=== PATIENT | female | born 1985 ===

== ENCOUNTER 2021-03-07 09:34 | Emergency (ER) | payer SELFPAY ==
[2021-03-07 10:46] LABS: Bilirubin,Urine NEG (Negative); Blood,Urine SM (Negative); Color,Urine Yellow (Yellow); Mucus,Urine 1+ /HPF; Protein,Urine <15 mg/dL mg/dL (Negative); Urobilinogen,Urine < 2.0 mg/dL (<2.0); WBC,Urine < 1.0 /HPF (0.0-6.0)
[2021-03-07 11:57] LABS: HCG Qualitative,Urine Positive (Negative)
--- NOTE | 2021-03-07 13:22 | Ultrasound Report ---
FIRSTTRIMESTER OBSTETRIC ULTRASOUND ULTRASOUND OB TRANSVAGINAL HISTORY: Pain in early COMPARISON: None. TECHNIQUE: Routine transabdominal and transvaginal OB ultrasound performed. FINDINGS: Uterus: Mildly enlarged measuring 14.0 x 6.6 x 6.7 cm. A few scattered uterine fibroids are identif ied measuring up to 2 cm in the posterior wall and 2.6 cm in the anterior wall. Gestational Sac: Not seen Yolk Sac: Not seen Fetus/Embryo: Not seen Endometrium: The endometrium is thickened and mildly complex measuring up to 2.7 cm in thickness. Ovaries: The right ovary is normal in size and appearance with normal blood flow, measuring 3.4 x 1. 5 x 2.6 cm. The left ovary is normal in size and appearance with normal blood flow, measuring 3.8 x 2.4 x 3.1 cm. Hypoechoic space-occupying mass in the right ovary with peripheral vascularity is most likely the corpus luteum. Additional findings: None. IMPRESSION No normal intrauterine is demonstrated at this time. The endometrium is thickened up to 2.6 cm. This could represent spontaneous with retained products of conception. Please note that an ectopic is not excluded as well. Please correlate with the patient's clinical presentat ion and laboratory values. Close interval follow-up is recommended. Signer Name: Dada Landry Jr, MD Signed: 03/07/2021 1:18 PM Workstation Name: [id number]
--- NOTE | 2021-03-07 13:30 | Emergency Department Report ---
ED HPI - General Chief complaint: Abdominal Pain Stated complaint: Time Seen by Provider: 03/07/21 10:42 Source: patient Mode of arrival: Ambulatory Limitations: No Limitations - History of Present Illness Initial comments: 36-year-old -[place] female patient presents with complaints of intermittent right suprapubic pain x6 days. She reports she had a positive home test 2 days ago. Her last menstrual cycle was 01/23/2021. She is G5, . She denies any vaginal bleeding, dysuria/hematuria/urinary frequency, vaginal discharge/dyspareunia, fever/chills/sweats, or stool changes. She rates the pain as 7/10 in severity and describes it as aching. The pain does not radiate to her back. She does have history of a prior and ectopic . - Related Data Allergies Allergy/AdvReac Type Severity Reaction Status Date / Time No Known Allergies Allergy Unverified 03/07/21 10:10 ED Review of Systems ROS: Stated complaint: Other details as noted in HPI Constitutional: denies: chills, diaphoresis, fever, malaise, weakness Respiratory: denies: shortness of breath Cardiovascular: denies: chest pain Gastrointestinal: abdominal pain. denies: nausea, vomiting, diarrhea, constipation, hematemesis, melena Genitourinary: denies: urgency, dysuria, frequency, hematuria, discharge, abnormal menses, dyspareunia Musculoskeletal: denies: back pain ED Past Medical Hx - Past Medical History Previous Medical History?: Yes Hx Hypertension: Yes - Surgical History Past Surgical History?: Yes Additional Surgical History: ED Physical Exam - General Limitations: No Limitations General appearance: alert, in no apparent distress, obese - Head Head exam: Present: atraumatic, normocephalic - Eye Eye exam: Present: normal appearance - Respiratory Respiratory exam: Present: normal lung sounds bilaterally. Absent: respiratory distress - Cardiovascular Cardiovascular Exam: Present: regular rate, normal rhythm. Absent: systolic murmur, diastolic murmur, rubs, gallop - GI/Abdominal GI/Abdominal exam: Present: soft, normal bowel sounds. Absent: distended, tenderness, guarding, rebound, rigid - Neurological Exam Neurological exam: Present: alert, oriented X3 - Psychiatric Psychiatric exam: Present: normal affect, normal mood - Skin Skin exam: Present: warm, dry, intact, normal color. Absent: rash, cyanosis, diaphoretic ED Course Vital Signs 03/07/21 03/07/21 13:32 15:42 Temperature 97.8 F Pulse Rate 78 84 Respiratory 17 Rate Blood Pressure 156/92 Blood Pressure 143/91 [Right] O2 Sat by Pulse 100 Oximetry ED Medical Decision Making - Lab Data Result diagrams: 03/07/21 12:33 03/07/21 12:33 - Radiology Data Radiology results: report reviewed FIRSTTRIMESTER OBSTETRIC ULTRASOUND ULTRASOUND OB TRANSVAGINAL HISTORY: Pain in early COMPARISON: None. TECHNIQUE: Routine transabdominal and transvaginal OB ultrasound performed. FINDINGS: Uterus: Mildly enlarged measuring 14.0 x 6.6 x 6.7 cm. A few scattered uterine fibroids are identified measuring up to 2 cm in the posterior wall and 2.6 cm in the anterior wall. Gestational Sac: Not seen Yolk Sac: Not seen Fetus/Embryo: Not seen Endometrium: The endometrium is thickened and mildly complex measuring up to 2.7 cm in thickness. Ovaries: The right ovary is normal in size and appearance with normal blood flow, measuring 3.4 x 1.5 x 2.6 cm. The left ovary is normal in size and appearance with normal blood flow, measuring 3.8 x 2.4 x 3.1 cm. Hypoechoic space-occupying mass in the right ovary with peripheral vascularity is most likely the corpus luteum. Additional findings: None. IMPRESSION No normal intrauterine is demonstrated at this time. The endometrium is thickened up to 2.6 cm. This could represent spontaneous with retained products of conception. Please note that an ectopic is not excluded as well. Please correlate with the patient's clinical presentation and laboratory values. Close interval follow-up is recommended. - Medical Decision Making 36-year-old -[place] female patient presents with complaints of intermittent right suprapubic pain x6 days. She reports she had a positive home test 2 days ago. Her last menstrual cycle was 01/23/2021. She is G5, . She denies any vaginal bleeding, dysuria/hematuria/urinary frequency, vaginal discharge/dyspareunia, fever/chills/sweats, or stool changes. She rates the pain as 7/10 in severity and describes it as aching. The pain does not radiate to her back. She does have history of a prior and ectopic . No significant tenderness to palpation of abdomen on exam. CBC and CMP UA are without acute abnormalities. Beta-hCG is approximately 1700. Ultrasound shows the following: IMPRESSION No normal intrauterine is demonstrated at this time. The endometrium is thickened up to 2.6 cm. This could represent spontaneous with retained products of conception. Please note that an ectopic is not excluded as well. Please correlate with the patient's clinical presentation and laboratory values. Close interval follow-up is recommended. No vaginal bleeding per patient so I do not suspect spontaneous with retained products at this time. Given history of ectopic , recommend patient return to the ED or her [employer] within 1 week for repeat ultrasound and beta hCG level. Patient informed to seek immediate emergency treatment if she experiences severe pain, vaginal bleeding, fever/chills/sweats, or any new or worsening symptoms. She is otherwise well-appearing, her vitals are normal, she is stable for discharge home. Critical care attestation.: If time is entered above; I have spent that time in minutes in the direct care of this critically ill patient, excluding procedure time. ED Disposition Clinical Impression: Abdominal pain in Disposition: DC-01 TO HOME OR SELFCARE Is pt being admited?: No Condition: Stable Instructions: Abdominal Pain During , Abdominal Pain (ED) Additional Instructions: Return to the emergency department in 1 week for repeat ultrasound and beta-hCG level Referrals: IVANA ODELL MD [Staff Physician] - 3-5 Days (Repeat ultrasound to beta- hCG level)
[2021-03-07] MEDS ORDERED: ACETAMINOPHEN 500 MG TAB PO STA (13:35)
[2021-03-07 13:54] LABS: Basophils # (Auto) 0.1 K/mm3 (0.0-0.1); Basophils % (Auto) 1.4 % (0.0-1.8); Eosinophils # (Auto) 0.1 K/mm3 (0.0-0.4); Eosinophils % (Auto) 1.3 % (0.0-4.3); Hematocrit 38.1 % (30.3-42.9); Hemoglobin 12.3 gm/dl (10.1-14.3); Lymphocytes # (Auto) 2.2 K/mm3 (1.2-5.4); Lymphocytes % (Auto) 29.8 % (13.4-35.0); Mean Corpuscular HGB Conc 32 % (30-34); Mean Corpuscular Volume 88 fl (79-97); Monocytes # (Auto) 0.7 K/mm3 (0.0-0.8); Monocytes % (Auto) 9.2 % (0.0-7.3); Platelet Count 425 K/mm3 (140-440); Red Blood Count 4.34 M/mm3 (3.65-5.03); Red Cell Distribution Width 13.9 % (13.2-15.2)
[2021-03-07 14:01] LABS: Alanine Aminotransferase 13 units/L (7-56); Albumin 4.3 g/dL (3.9-5); BUN/Creatinine Ratio 10; Blood Urea Nitrogen 6 mg/dL (7-17); Calcium 9.4 mg/dL (8.4-10.2); Hemolysis Index 0
[2021-03-07 15:45] VITALS: BP 156/92
== END 2021-03-07 15:45 | disposition home or self-care (01) ==
LOC: ED 09:34
DX: O26.891 Other specified pregnancy related conditions, first trimester (principal); R10.30 Lower abdominal pain, unspecified; I10 Essential (primary) hypertension; Z98.890 Other specified postprocedural states; Z79.899 Other long term (current) drug therapy
CPT/HCPCS: 36415; 76801; 76817; 80053; 81001; 81025; 84702; 85025; 99284

== ENCOUNTER 2021-03-30 20:31 | Emergency (ER) | payer SELFPAY ==
[2021-03-30 21:45] VITALS: BP 119/71
[2021-03-30 22:29] LABS: Hematocrit 34.7 % (30.3-42.9); Hemoglobin 11.7 gm/dl (10.1-14.3); Mean Corpuscular HGB Conc 34 % (30-34); Mean Corpuscular Volume 88 fl (79-97); Platelet Count 380 K/mm3 (140-440); Red Blood Count 3.92 M/mm3 (3.65-5.03); Red Cell Distribution Width 14.2 % (13.2-15.2)
--- NOTE | 2021-03-31 00:01 | Ultrasound Report ---
ULTRASOUND OBSTETRIC INDICATION / CLINICAL INFORMATION: 8 weeks with right side lower abd pain. Clinical Gestational Age (GA) in weeks, days: 6, 3 TECHNIQUE: Transabdominal and Transvaginal. COMPARISON: Ultrasound dated 03/07/21 FINDINGS: GESTATIONAL SAC: Well-defined oval shape and intrauterine in location. YOLK SAC: No significant abnormality. EMBRYO/FETUS: No significant abnormality. - [place]-Rump Length = 1.3 cm = 7, 4 weeks, days - Heart Rate, beats per minute (if present) = 155 Uterus: Heterogeneous with small fibroids measuring up to 1.8 cm. ADNEXA: Right ovarian physiologic cyst. No left adnexal abnormality. FREE FLUID: None. ADDITIONAL FINDINGS: None. IMPRESSION: 1. Single, living intrauterine with estimated sonographic age of 7, 4 weeks, days. Signer Name: Rai Dao MD Signed: 03/30/2021 11:57 PM Workstation Name: [id number]
--- NOTE | 2021-03-31 00:01 | Ultrasound Report ---
ULTRASOUND OBSTETRIC INDICATION / CLINICAL INFORMATION: 8 weeks with right side lower abd pain. Clinical Gestational Age (GA) in weeks, days: 6, 3 TECHNIQUE: Transabdominal and Transvaginal. COMPARISON: Ultrasound dated 03/07/21 FINDINGS: GESTATIONAL SAC: Well-defined oval shape and intrauterine in location. YOLK SAC: No significant abnormality. EMBRYO/FETUS: No significant abnormality. - [place]-Rump Length = 1.3 cm = 7, 4 weeks, days - Heart Rate, beats per minute (if present) = 155 Uterus: Heterogeneous with small fibroids measuring up to 1.8 cm. ADNEXA: Right ovarian physiologic cyst. No left adnexal abnormality. FREE FLUID: None. ADDITIONAL FINDINGS: None. IMPRESSION: 1. Single, living intrauterine with estimated sonographic age of 7, 4 weeks, days. Signer Name: Rai Dao MD Signed: 03/30/2021 11:57 PM Workstation Name: [id number]
[2021-03-31] MEDS ORDERED: ACETAMINOPHEN 500 MG TAB PO ONE (01:05)
[2021-03-31] MEDS ORDERED: FAMOTIDINE 20 MG TAB PO ONE (01:05)
[2021-03-31] MEDS ORDERED: PROMETHAZINE 25 MG TAB PO ONE (01:05)
--- NOTE | 2021-03-31 01:13 | Emergency Department Report ---
ED Abdominal Pain HPI - General Chief Complaint: Abdominal Pain Stated Complaint: 8WKS PREG/CRAMPS LOWER STOMACH Source: patient Mode of arrival: Ambulatory Limitations: No Limitations - History of Present Illness Initial Comments: Patient is a A2 36-year-old -[place] female who is approximately 7 weeks gestation presents to the ED with complaint of acute onset persistent severe diffuse low abdominal pain that radiates to the right lower quadrant area with nausea and vomiting for the last 8 hours. Patient states that she just found out that she was 3 weeks ago but that the pain has been persistent, constant and severe in the last 8 hours. Patient states that she has not not been able to keep anything down in the last 3 days as well because of intractable nausea and vomiting. Patient denies fever, chills, diarrhea, dysuria, urinary frequency and urgency, vaginal bleeding, vaginal discharge, low back pain, chest pain or shortness of breath and headache. MD Complaint: abdominal pain (pelvic pain, nausea, vomiting), other (7 weeks gestation) -: Sudden, hour(s) (8) Location: suprapubic Radiation: none Migration to: no migration Severity: severe Severity scale (0 -10): 7 Quality: cramping, sharp Consistency: constant Improves With: nothing Worsens With: movement Associated Symptoms: nausea, vomiting, anorexia. denies: denies other symptoms, diarrhea, fever, chills, constipation, dysuria, hematemesis, hematochezia, melena, hematuria, syncope, other - Related Data LMP Date: 01/30/21 Previous Rx's Medication Instructions Recorded Last Taken Type Acetaminophen [Tylenol] 500 mg PO Q6HR PRN #40 tablet 03/31/21 Unknown Rx Famotidine [Pepcid] 20 mg PO BID #60 tablet 03/31/21 Unknown Rx Promethazine [Phenergan] 25 mg PO Q6HR PRN #30 tab 03/31/21 Unknown Rx Allergies Allergy/AdvReac Type Severity Reaction Status Date / Time No Known Allergies Allergy Unverified 03/07/21 10:10 ED Review of Systems ROS: Stated complaint: 8WKS PREG/CRAMPS LOWER STOMACH Other details as noted in HPI Constitutional: denies: chills, fever Eyes: denies: eye pain, eye discharge, vision change ENT: denies: ear pain, throat pain Respiratory: denies: cough, shortness of breath, wheezing Cardiovascular: denies: chest pain, palpitations Endocrine: no symptoms reported Gastrointestinal: abdominal pain (pelvic pain), nausea, vomiting. denies: diarrhea Genitourinary: denies: urgency, dysuria, discharge Musculoskeletal: denies: back pain, joint swelling, arthralgia Skin: denies: rash, lesions Neurological: denies: headache, weakness, paresthesias Psychiatric: denies: anxiety, depression Hematological/Lymphatic: denies: easy bleeding, easy bruising ED Past Medical Hx - Past Medical History Previous Medical History?: Yes Hx Hypertension: Yes Additional medical history: pre-eclampsia, ectopic - Surgical History Past Surgical History?: Yes Additional Surgical History: - Social History Smoking Status: Unknown if ever smoked - Medications Home Medications: Home Medications Medication Instructions Recorded Confirmed Last Taken Type Acetaminophen [Tylenol] 500 mg PO Q6HR PRN #40 tablet 03/31/21 Unknown Rx Famotidine [Pepcid] 20 mg PO BID #60 tablet 03/31/21 Unknown Rx Promethazine [Phenergan] 25 mg PO Q6HR PRN #30 tab 03/31/21 Unknown Rx ED Physical Exam - General Limitations: No Limitations General appearance: alert, in no apparent distress - Head Head exam: Present: atraumatic, normocephalic, normal inspection - Eye Eye exam: Present: normal appearance, PERRL, EOMI Pupils: Present: normal accommodation - ENT ENT exam: Present: normal exam, normal orophraynx, mucous membranes moist, TM's normal bilaterally, normal external ear exam - Neck Neck exam: Present: normal inspection, full ROM - Respiratory Respiratory exam: Present: normal lung sounds bilaterally. Absent: respiratory distress, wheezes, rales, rhonchi, stridor, chest wall tenderness, accessory muscle use, decreased breath sounds, prolonged expiratory - Cardiovascular Cardiovascular Exam: Present: regular rate, normal rhythm, normal heart sounds. Absent: systolic murmur, diastolic murmur, rubs, gallop - GI/Abdominal GI/Abdominal exam: Present: soft, tenderness (Palpable diffuse lower abdominal tenderness), normal bowel sounds. Absent: guarding, rebound - Extremities Exam Extremities exam: Present: normal inspection, full ROM, normal capillary refill - Back Exam Back exam: Present: normal inspection, full ROM. Absent: tenderness, CVA tenderness (R), CVA tenderness (L), muscle spasm - Neurological Exam Neurological exam: Present: alert, oriented X3, CN II-XII intact, normal gait, reflexes normal - Psychiatric Psychiatric exam: Present: normal affect, normal mood - Skin Skin exam: Present: warm, dry, intact, normal color. Absent: rash ED Course Vital Signs 03/30/21 21:44 Temperature 99.1 F Pulse Rate 67 Respiratory 19 Rate Blood Pressure 119/71 [Right] O2 Sat by Pulse 100 Oximetry ED Medical Decision Making - Lab Data Result diagrams: 03/30/21 21:52 03/30/21 21:52 - Radiology Data Radiology results: report reviewed, image reviewed [facility] [address] [place] [address] Ultrasound Report Signed Patient: JOSEPH BLAKELY MR#: [id number] 1 : 1985 Acct:[id number] Age/Sex: 36 / F ADM Date: 03/30/21 Loc: ED Attending Dr: Ordering Physician: MAO ANDERSON Date of Service: 03/30/21 Procedure(s): US OB transvaginal Accession Number(s): [id number] cc: MAO ANDERSON ULTRASOUND OBSTETRIC INDICATION / CLINICAL INFORMATION: 8 weeks with right side lower abd pain. Clinical Gestational Age (GA) in weeks, days: 6, 3 TECHNIQUE: Transabdominal and Transvaginal. COMPARISON: Ultrasound dated 03/07/21 FINDINGS: GESTATIONAL SAC: Well-defined oval shape and intrauterine in location. YOLK SAC: No significant abnormality. EMBRYO/FETUS: No significant abnormality. - [place]-Rump Length = 1.3 cm = 7, 4 weeks, days - Heart Rate, beats per minute (if present) = 155 Uterus: Heterogeneous with small fibroids measuring up to 1.8 cm. ADNEXA: Right ovarian physiologic cyst. No left adnexal abnormality. FREE FLUID: None. ADDITIONAL FINDINGS: None. IMPRESSION: 1. Single, living intrauterine with estimated sonographic age of 7, 4 weeks, days. Signer Name: Rai Dao MD Signed: 03/30/2021 11:57 PM Workstation Name: [id number] Transcribed By: JACQUELIN Dictated By: Alex Dao MD Electronically Authenticated By: Alex Dao MD Signed Date/Time: 03/30/212356 DD/ 53 TD/TT: - Medical Decision Making This is a A2 36-year-old -[place] female who is approximately 7 weeks gestation presents to the ED with complaint of acute onset persistent severe diffuse low abdominal pain that radiates to the right lower quadrant area with nausea and vomiting for the last 8 hours. Patient states that she just found out that she was 3 weeks ago but that the pain has been persistent, constant and severe in the last 8 hours. Patient states that she has not not been able to keep anything down in the last 3 days as well because of intractable nausea and vomiting. In the ED, patient is alert and oriented x3 and is not in any distress. Lab test results were reviewed and are all nonactionable, [place] [id number]. Patient was treated for pain in the ED with Tylenol and also given antacids and antiemetics. Transvaginal ultrasound showed a single living IUP with estimated sonographic age of 7, 4 weeks, days, and heart rate of 155 bpm. On reevaluation, patient's pain is well controlled medication. Patient will discharge home on pain medications and advised to maintain a complete pelvic rest with no strenuous physical or sexual activity, and to take Tylenol as needed for pain and the antiemetics prescribed. Patient is advised to follow-up with her [employer] physician in 3 to 5 days for reevaluation or return to the ED immediately if symptoms get worse. - Differential Diagnosis Ectopic ; UTI; Ovarian cyst; Uterine Fibroids Critical care attestation.: If time is entered above; I have spent that time in minutes in the direct care of this critically ill patient, excluding procedure time. ED Disposition Clinical Impression: Abdominal pain during in first trimester, Nausea and vomiting in prior to 22 weeks gestation Disposition: DC-01 TO HOME OR SELFCARE Is pt being admited?: No Does the pt Need Aspirin: No Condition: Stable Instructions: Abdominal Pain During , [id number], Nausea and Vomiting, Adult, [id number], Abdominal Pain (ED) Additional Instructions: All lab test results were reviewed and are all nonactionable. Transvaginal ultrasound showed a single live intrauterine of approximately 7 weeks and 4 days with a heart rate of 155 bpm. Therefore take medications, mainly Tylenol as needed with food for pain, take antiemetics and antacids and minimize strenuous physical activities or sexual activity, follow-up with your [employer] physician in 3 to 5 days for reevaluation. Return to the ED immediately if symptoms get worse. Prescriptions: Acetaminophen [Tylenol] 500 mg PO Q6HR PRN #40 tablet PRN Reason: Pain , Severe (7-10) Famotidine [Pepcid] 20 mg PO BID #60 tablet Promethazine [Phenergan] 25 mg PO Q6HR PRN #30 tab PRN Reason: Nausea Referrals: BRANDO GODINEZ MD [Staff Physician] - 3-5 Days Time of Disposition: 01:15 Print Language: AZERI
[2021-03-31 01:42] LABS: Alanine Aminotransferase 9 units/L (7-56); Albumin 4.2 g/dL (3.9-5); Blood Urea Nitrogen 7 mg/dL (7-17); Calcium 9.3 mg/dL (8.4-10.2); Hemolysis Index 31
[2021-03-31 01:49] LABS: Bilirubin,Urine NEG (Negative); Blood,Urine SM (Negative); Color,Urine Yellow (Yellow); Mucus,Urine FEW /HPF; Protein,Urine <15 mg/dL mg/dL (Negative); Urobilinogen,Urine < 2.0 mg/dL (<2.0)
[2021-03-31 01:56] LABS: BUN/Creatinine Ratio 10
== END 2021-03-31 01:30 | disposition home or self-care (01) ==
LOC: ED 20:31
DX: O26.891 Other specified pregnancy related conditions, first trimester (principal); O21.0 Mild hyperemesis gravidarum; O10.911 Unspecified pre-existing hypertension complicating pregnancy, first trimester; Z3A.01 Less than 8 weeks gestation of pregnancy
CPT/HCPCS: 36415; 76801; 76817; 80053; 81001; 84702; 85027; 99284